=== PATIENT | male | born 1965 | race Caucasian/White ===

== ENCOUNTER → 2016-10-03 | Outpatient (CLI) | payer BC ==
[~2016-10-03] MED LIST: ASPI-515 PO; ATOR20TA9 PO; CARV3.122 PO; CLOP75TA PO; DOCU-30 PO; FURO40TA6 PO; GLIP5TAB10 PO; HYDR-3307 PO; LOSA100T6 PO; METF500T4 PO; OMEP-110 PO; POTA8CAP PO
== END | disposition home or self-care (01) ==
LOC: CFH 13:02
PROVIDERS: ATTEND Internal Medicine Cardiovascular Disease
DX: I08.3 Combined rheumatic disorders of mitral, aortic and tricuspid valves (principal); I37.1 Nonrheumatic pulmonary valve insufficiency; Z95.1 Presence of aortocoronary bypass graft
CPT/HCPCS: 93306

== ENCOUNTER → 2016-11-21 | Outpatient (CLI) | payer BC | END | disposition home or self-care (01) | LOC: CFH 12:19 | PROVIDERS: ATTEND Physician Assistant Medical | DX: I08.3 Combined rheumatic disorders of mitral, aortic and tricuspid valves (principal); I37.1 Nonrheumatic pulmonary valve insufficiency; I10 Essential (primary) hypertension; I25.10 Atherosclerotic heart disease of native coronary artery without angina pectoris; E11.9 Type 2 diabetes mellitus without complications; Z95.1 Presence of aortocoronary bypass graft | CPT/HCPCS: 93306 ==

== ENCOUNTER 2017-01-07 07:39 | Observation (INO) | payer BC, OTHER ==
[2017-01-06 15:16] LABS: BLOOD UREA NITROGEN 32 mg/dL (7-18)
[~2017-01-07] VITALS: Ht 188 cm; Wt 100.0 kg
[~2017-01-07 07:39] MED LIST changes: +LISI5TAB7 PO; +SPIR25TA3 PO
[2017-01-07] MEDS ORDERED: ATOR40TA78 PO (07:58)
[2017-01-07] MEDS: SODIUM CHLORIDE 0.9% 1,000 ML IV SCH ×3 (07:59→23:59)
[2017-01-07] MEDS ORDERED: CEFAZOLIN PMX 1GM/50ML 50 ML IVPB ONE (08:00)
[2017-01-07 08:02] VITALS: BP 131/89
[2017-01-07] MEDS ORDERED: CEFAZOLIN 1,000 MG ONE ×2 (11:35→17:02)
[2017-01-07] MEDS ORDERED: LIDOCAINE 2%, 20ML ONE (11:35)
[2017-01-07] MEDS ORDERED: CEFAZOLIN PMX 1GM/50ML 50 ML ONE (11:35)
[2017-01-07] MEDS ORDERED: FENTANYL PF 250 MCG/5ML ONE (11:45)
[2017-01-07] MEDS ORDERED: MIDAZOLAM 1 MG/ML, 5ML ONE (11:45)
[2017-01-07] MEDS ORDERED: HYDROcodone/APAP 5/325 TABLET PO PRN (13:00)
[2017-01-07] MEDS ORDERED: ZOLPIDEM 5MG TABLET PO PRN (13:00)
[2017-01-07] MEDS ORDERED: HYDROmorphone 1 MG/ML, 1ML IV PRN (13:30)
[2017-01-07] MEDS ORDERED: ALBUTEROL SULFATE 2.5 MG/3 ML NPPB PRN (13:30)
[2017-01-07] MEDS ORDERED: MEPERIDINE/PF 25MG/0.5ML IVPush PRN (13:30)
[2017-01-07] MEDS ORDERED: hydrALAzine 20 MG/ML, 1ML IV PRN (13:30)
[2017-01-07] MEDS ORDERED: FENTANYL PF 100 MCG/2ML IV PRN (13:30)
[2017-01-07] MEDS ORDERED: ONDANSETRON 2MG/ML, 2ML IVPush PRN (13:30)
[2017-01-07] MEDS ORDERED: PROMETHAZINE 25 MG/ML, 1ML IV PRN (13:30)
[2017-01-07] MEDS ORDERED: LABETALOL 5MG/ML, 20ML IV PRN (13:30)
[2017-01-07] MEDS ORDERED: ACETAMINOPHEN 325 MG TABLET PO PRN (13:30)
[2017-01-07] MEDS ORDERED: MIDAZOLAM 1 MG/ML, 2ML IV PRN (13:30)
[2017-01-07] MEDS ORDERED: OXYcodone 5 MG/5 ML ORAL.SOL UDC PO PRN (13:30)
[2017-01-07] MEDS ORDERED: SUCCINYLCHOLINE 20 MG/ML, 10ML ONE (17:02)
[2017-01-07] MEDS ORDERED: PROPOFOL 10 MG/ML, 20ML ONE (17:02)
[2017-01-07] MEDS ORDERED: DEXAMETHASONE 4 MG/ML, 1ML ONE (17:02)
[2017-01-07] MEDS ORDERED: ONDANSETRON 2MG/ML, 2ML ONE (17:02)
[2017-01-07] MEDS ORDERED: ROCURONIUM 10 MG/ML ONE (17:02)
[2017-01-07] MEDS ORDERED: PHENYLEPHRINE 10 MG/ML ONE (17:02)
[2017-01-07] MEDS: CEFAZOLIN PMX 1GM/50ML 50 ML IVPB SCH (18:00)
[2017-01-07] MEDS: metFORMIN 500 MG TABLET PO SCH ×2 (18:00→21:25)
[2017-01-07 20:00] VITALS: BP 137/84
[2017-01-07] MEDS ORDERED: ATORVASTATIN 40 MG TABLET PO SCH (21:00)
[2017-01-07] MEDS: SODIUM CHLORIDE FLUSH 10ML SYR IVF SCH (21:25)
[2017-01-07] MEDS: CARVEDILOL 3.125 MG TABLET PO SCH (21:27)
[2017-01-08 01:05] VITALS: BP 136/79
[2017-01-08] MEDS: CEFAZOLIN PMX 1GM/50ML 50 ML IVPB SCH ×2 (02:07→08:38)
[2017-01-08] MEDS: SODIUM CHLORIDE 0.9% 1,000 ML IV SCH (07:29)
[2017-01-08] MEDS: CARVEDILOL 3.125 MG TABLET PO SCH (08:18)
[2017-01-08] MEDS: SODIUM CHLORIDE FLUSH 10ML SYR IVF SCH (08:20)
[2017-01-08] MEDS: metFORMIN 500 MG TABLET PO SCH (08:20)
[2017-01-08 08:21] VITALS: BP 124/77
[2017-01-08] MEDS ORDERED: CLOPIDOGREL 75 MG TABLET PO SCH ×2 (09:00)
[2017-01-08] MEDS ORDERED: OMEPRAZOLE 20 MG CAPSULE.DR PO SCH (09:00)
[2017-01-08] MEDS ORDERED: FUROSEMIDE 40 MG TABLET PO SCH (09:00)
[2017-01-08] MEDS ORDERED: LISINOPRIL 5 MG TABLET PO SCH (09:00)
[2017-01-08] MEDS ORDERED: ASPIRIN 81 MG TABLET EC PO SCH (09:00)
[2017-01-08] MEDS ORDERED: SPIRONOLACTONE 25 MG TABLET PO SCH (09:00)
[2017-01-08] MEDS ORDERED: FUROSEMIDE 20 MG TABLET PO SCH (09:00)
== END 2017-01-08 12:03 | disposition home or self-care (01) ==
LOC: CACL 07:39 → ORIP 12:55 → 5SO 14:56 → DCLOUNGE 01-08 11:30
PROVIDERS: ADMIT Internal Medicine Cardiovascular Disease; ATTEND Internal Medicine Cardiovascular Disease
DX: I25.5 Ischemic cardiomyopathy (principal); I50.9 Heart failure, unspecified; R57.9 Shock, unspecified; I49.01 Ventricular fibrillation; I10 Essential (primary) hypertension; E11.9 Type 2 diabetes mellitus without complications; I25.10 Atherosclerotic heart disease of native coronary artery without angina pectoris
CPT/HCPCS: 33249; 36415; 71020; 80048; 82962; 85025; 93005; 93640; 96365; 96375; C1721; C1779; C1892; C1895; G0378; J0330; J0690; J1100; J2250; J2370; J2405; J2704; J3010; J3490

== ENCOUNTER 2018-10-20 13:48 | Outpatient (CLI) | payer BC ==
[~2018-10-20 13:48] MED LIST changes: +ATOR20TA37 PO; -ATOR20TA9 PO; +ATOR40TA78 PO; +DOCU-131 PO; -DOCU-30 PO; +LOSA100T14 PO; -LOSA100T6 PO; +METF500T17 PO; -METF500T4 PO; -SPIR25TA3 PO; +SPIR25TA5 PO
== END 2018-10-20 23:59 | disposition home or self-care (01) ==
LOC: CFH 13:48
PROVIDERS: ATTEND Internal Medicine Cardiovascular Disease
DX: I35.8 Other nonrheumatic aortic valve disorders (principal); I10 Essential (primary) hypertension; I25.2 Old myocardial infarction; I42.9 Cardiomyopathy, unspecified; Z95.1 Presence of aortocoronary bypass graft; Z87.891 Personal history of nicotine dependence
CPT/HCPCS: 93306